=== PATIENT | male | born 1950 | race Caucasian/White ===

== ENCOUNTER 2017-02-18 15:18 | Emergency (ER) | payer MEDICARE, OTHER ==
[2017-02-18 16:10] LABS: BASOPHILS 0.7 % (0-2); HEMATOCRIT 40.2 % (42.0-54.0); HEMOGLOBIN 13.3 g/dL (13.5-17.5); LYMPHOCYTES 18.2 % (15-50); MCH 29.2 pg (26.0-34.0); MCHC 33.1 g/dL (31.0-37.0); MCV 88.4 fL (80.0-100.0); MEAN PLATELET VOLUME 9.7 fL (7.4-10.4); MONOCYTES 8.7 % (2-11); NEUTROPHILS 70.4 % (40-80); PLATELET COUNT 154 10x3/uL (130-400); RBC 4.55 10x6/uL (4.20-6.10)
[2017-02-18 16:18] LABS: ANION GAP 10.9 mmol/L (8-16); CALCIUM 8.9 mg/dL (8.5-10.1); CREATININE - SERUM 1.2 mg/dL (0.6-1.3); POTASSIUM - SERUM 3.9 mmol/L (3.5-5.1)
== END 2017-02-18 17:07 | disposition home or self-care (01) ==
LOC: D.ER 15:18
PROVIDERS: Nurse Practitioner Acute Care
DX: R42 Dizziness and giddiness (principal); R00.1 Bradycardia, unspecified; G20 Parkinson's disease

== ENCOUNTER 2018-05-28 09:50 | Emergency (ER) | payer MEDICARE, OTHER ==
[~2018-05-28] VITALS: Ht 172.7 cm; Wt 72.7 kg
[2018-05-28 10:01] VITALS: Ht 172.7 cm; Wt 72.7 kg
[2018-05-28] MEDS ORDERED: XARELTO10 MG PO (10:03)
[2018-05-28] MEDS ORDERED: BETAPACE 80 MG80 MG PO (10:03)
[2018-05-28] MEDS ORDERED: STALEVO 100 TAB1 TAB PO (10:03)
[2018-05-28] MEDS ORDERED: OMEPRAZOLE40 MG PO (10:04)
[2018-05-28] MEDS ORDERED: TORADOL10 MG PO (10:29)
[2018-05-28] MEDS ORDERED: AUGMENTIN 875-11 TAB PO (10:29)
[2018-05-28 11:08] VITALS: BP 156/70
== END 2018-05-28 11:10 | disposition home or self-care (01) ==
LOC: D.ER 09:50
DX: S61.451A Open bite of right hand, initial encounter (principal); L08.9 Local infection of the skin and subcutaneous tissue, unspecified; W55.01XA Bitten by cat, initial encounter; Y93.89 Activity, other specified; Y92.019 Unspecified place in single-family (private) house as the place of occurrence of the external cause; G20 Parkinson's disease; I48.91 Unspecified atrial fibrillation; K21.9 Gastro-esophageal reflux disease without esophagitis